=== PATIENT | male | born 1945 | race Asian ===

== ENCOUNTER 2017-04-19 14:50 | Outpatient (CLI) | payer OTHER ==
[~2017-04-19 14:50] MED LIST: ASA LO-DOSE81 MG OR; BENICAR HCT1 TA2 PO; FLUT0.05 NAS; METF500T PO; PRAVACHOL20 MG PO; TRAM50TA PO; Z-PAK PO
[2017-04-19 15:17] LABS: PLATELET COUNT 191 K/uL (142-355)
[2017-04-19 15:26] LABS: POTASSIUM 3.9 mmol/L (3.6-5.2); SODIUM 140 mmol/L (136-145)
== END 2017-04-19 15:50 | disposition home or self-care (01) ==
LOC: LAB 14:50
PROVIDERS: Nurse Practitioner Family
DX: I10 Essential (primary) hypertension (principal); E78.4 Other hyperlipidemia; E11.9 Type 2 diabetes mellitus without complications; Z79.899 Other long term (current) drug therapy; Z51.81 Encounter for therapeutic drug level monitoring
CPT/HCPCS: 80053; 80061; 83036; 84436; 84443; 85027